=== PATIENT | female | born 1990 | race African-American/Black ===

== ENCOUNTER 2024-06-13 11:10 | Inpatient (IN) | payer OTHER ==
[2024-06-13] VITALS (8 sets, daily range): BP systolic 149–167; BP diastolic 91–102; PULSE 64–78; TEMP 98.2–99.2
[~2024-06-13] VITALS: Ht 175.3 cm; Wt 127.0 kg
--- NOTE | 2024-06-13 12:30 | NUR ---
Pt arrived to medical floor from admissions. Admission assessment and intake completed. VSS with elevated BP 160/101. NEREYDA Victoria notified of elevated BP by phone. PA stated hospitalist would put orders in. at bedside. Home medidcations, allergies, and pharmacy reviewed. INT to Lt AC patent with no swelling, redness, or drainage. Pt brought in home breast pump and is pumping breast milk. OB charge nurse notified by phone and stated that hospital can store breast milk on OB floor until discharge. +2 BLE edema noted in assessment. Lung sounds clear to auscultation. Oriented pt to room, call light, and bathroom. Pt denies pain at this time rating 0/10. Pt has no request at this time. Call light within reach.
[2024-06-13] MEDS ORDERED: PRENATAL TABLET PO (13:46)
[2024-06-13] MEDS ORDERED: DULCOLAX STOOL100 MG PO (13:47)
[2024-06-13] MEDS ORDERED: NATURAL IRON65 MG (13:47)
[2024-06-13] MEDS ORDERED: Furosemide 40 MG/4 ML VIAL IV SCH (15:18)
[2024-06-13] MEDS ORDERED: Metoprolol Tartrate 25 MG TAB PO SCH (15:20)
[2024-06-13] MEDS ORDERED: Acetaminophen 500 MG TAB PO PRN (15:30)
[2024-06-13] MEDS ORDERED: 1/2 NS 1,000 ML IV SCH (15:30)
[2024-06-13] MEDS ORDERED: Ondansetron 4 MG/2 ML VIAL IV PRN (15:30)
[2024-06-13] MEDS ORDERED: NS 100 ML IV SCH (16:35)
[2024-06-13] MEDS ORDERED: Iohexol 300 - 100 ML VIAL IV ONE (16:35)
[2024-06-14] VITALS (8 sets, daily range): BP systolic 138–156; BP diastolic 90–95; PULSE 64–119; TEMP 98.4–98.8
[2024-06-14] MEDS ORDERED: Furosemide 40 MG TAB PO SCH
--- NOTE | 2024-06-14 06:50 | NUR ---
PT RESTING IN BED. PT IS ON RA. PT IS SR ON TELE. PT HAS CALL LIGHT AND INSTRUCTED TO CALL WITH ALL NEEDS.
[2024-06-14 09:24] LABS: BASO % 0.6 % (0.0-2.0); EOS # 0.1 K/mm3 (0.0-0.7); EOS % 1.7 % (0.0-4.0); GRAN # 3.6 K/mm3 (1.4-6.5); GRAN % 67.7 % (42.2-75.2); HEMOGLOBIN 10.4 g/dl (12.5-16.0); LYMPH # 1.3 K/mm3 (1.2-3.4); LYMPH % 24.3 % (20.0-51.0); MEAN CELL VOLUME 81 fl (80.0-100.0); MEAN CORPUSCULAR HEMOGLOBIN 27 pg (27-31); MEAN CORPUSCULAR HGB CONC 33 g/dl (33.0-37.0); MEAN PLATELET VOLUME 10.5 fl (7.4-10.4); MONO # 0.3 K/mm3 (0.1-0.6); MONO % 5.5 % (1.7-9.3); PLATELET COUNT 394 K/mm3 (130-400); RED BLOOD COUNT 3.88 M/mm3 (4.10-5.30); REDCELL DISTRIBUTION WIDTH-CV 13.6 % (11.5-14.5)
[2024-06-14 09:26] LABS: HEMATOCRIT 31.5 % (37.0-47.0)
--- NOTE | 2024-06-14 09:44 | NUR ---
RO[employer]ED [employer] M[employer] OPERATOR met w/ pt bedside to discuss discharge planning and complete initial consult. Pt uses [facility] for PCP and Pharmacy. Pt does not have a DPOA and confirmed NOK is spouse Vini [phone]. Pt lives at home with spouse Vini and a son. Pt uses no assistive devices at home and no DME. Pt stated she does feel safe at home and expresses no concerns returning home. Pt not interested in filing out DPOA. RO[employer]ED [employer] M[employer] OPERATOR provided phone number and encouraged to call if any concerns arise or she does want to fill out advanced directives. Voiced understanding and appretiation. D/C: Home w\ spouse
[2024-06-14 09:50] LABS: ALBUMIN 2.7 g/dL (3.5-5.0); BILIRUBIN,TOTAL 0.3 mg/dL (0.2-1.2); CALCIUM 8.8 mg/dL (8.4-10.2); CREATININE, serum 0.72 mg/dL (0.57-1.11); MAGNESIUM 1.6 mg/dL (1.6-2.6); POTASSIUM 3.8 mEq/L (3.5-4.5); TOTAL PROTEIN 6.7 g/dl (6.2-8.1)
--- NOTE | 2024-06-14 12:01 | NUR ---
Data: Patient declined spiritual care visit offered during [place] rounds possibley because Patient had two visitors at the time. Assessment: None. Patient declined. Plan of Care: Chaplains will remain available as requested while Patient is admitted to this hospital.
[2024-06-14] MEDS ORDERED: TOPROL XL 25MG25 MG PO (15:17)
[2024-06-14] MEDS ORDERED: LASIX 40MG TABL40 MG PO (15:18)
--- NOTE | 2024-06-14 15:58 | NUR ---
IV AND TELE DC'D. DISCHARGE INSTRUCTIONS DISCUSSED WITH PT. FOLLOW UP APPOINTMENTS AND LAB WORK DISCUSSED. ALL QUESITONS ANSWERED. PT AWAITING HUSBANDS ARRIVAL. INSTRUCTED TO CALL WITH READY.
== END 2024-06-14 16:30 | disposition home or self-care (01) | DRG 776 ==
LOC: MEDICAL 11:10
PROVIDERS: ADMIT Internal Medicine
DX: O90.3 Peripartum cardiomyopathy (principal); O90.81 Anemia of the puerperium; D64.9 Anemia, unspecified; O13.5 Gestational [pregnancy-induced] hypertension without significant proteinuria, complicating the puerperium; I34.0 Nonrheumatic mitral (valve) insufficiency; O90.89 Other complications of the puerperium, not elsewhere classified; R16.0 Hepatomegaly, not elsewhere classified
CPT/HCPCS: J1940; Q9967